=== PATIENT | male | born 1990 | race Caucasian/White ===

== ENCOUNTER 2025-09-23 08:11 | Outpatient (CLI) | payer OTHER | END 2025-09-23 08:12 | disposition home or self-care (01) | LOC: ULT 08:11 | PROVIDERS: ATTEND Family Medicine | DX: F51.4 Sleep terrors [night terrors] (principal); F39 Unspecified mood [affective] disorder; E66.9 Obesity, unspecified; H52.10 Myopia, unspecified eye; R10.9 Unspecified abdominal pain; J35.9 Chronic disease of tonsils and adenoids, unspecified | CPT/HCPCS: 76856 ==